=== PATIENT | male | born 1965 | race Caucasian/White ===

== ENCOUNTER 2017-01-16 10:43 | Day surgery (SDC) | payer BC ==
[2017-01-12 11:37] VITALS: BMI 21.7
[~2017-01-16 10:43] MED LIST: LIDOCAINE 1% 20 ML VIAL (10MG/ML) FOR IV START INTRADERMA PRN
[2017-01-16 12:18] VITALS: RESP 16; TEMP 98.2
[2017-01-16] MEDS: LACTATED RINGERS 1,000 ML IV SCH ×2 (12:18→12:21)
[2017-01-16] MEDS ORDERED: fentaNYL (PF) 50 MCG/ML 2 ML AMP ONE (12:23)
[2017-01-16] MEDS ORDERED: PROPOFOL 10 MG/ML 20 ML VIAL IV ONE (12:23)
--- NOTE | 2017-01-16 13:00 | P.PCN ---
Date of Procedure: 01/16/17 Preoperative Diagnosis: Postoperative Diagnosis: Procedure(s) Performed: Procedure: Total colonoscopy. Preoperative diagnosis: Screening for neoplasia. Postoperative diagnosis: Diverticulosis with no evidence of acute diverticulitis or strictures. No polyps or cancer. Preparation: HalfLytely prep. Sedation: Was provided by anesthesia. Brief clinical history: The patient is a 51-year-old male who is referred for this evaluation for screening for neoplasia age being his risk factor. He has no abdominal complaints of bleeding or anemia. He is adopted and he does not know of any family history of colon cancer. This would be his first colonoscopy. Procedure: With the patient on his left lateral decubitus position and after informed consent and adequate sedation, the perianal area was inspected and it did not show any fissures or distress. There were no masses felt on digital rectal examination. The Olympus CFQ 160L video colonoscope was then inserted in the rectum in the usual fashion and advanced to the cecum. There were occasional diverticular orifices seen scattered in the sigmoid and a rare orifice around the hepatic flexure with no evidence of acute diverticulitis or strictures. No polyps or tumors were seen. I retroflexed the endoscope in the rectum before the endoscope was withdrawn. The patient tolerated the procedure well. Plan: The patient was reassured. Discussed dietary measures. In the absence of finding of polyps or known family history of colon cancer, I suggested repeat exam in 10 years for screening for neoplasia. He will follow up with you as planned. Implants: Indications for Procedure: Operative Findings: Description of Procedure:
[2017-01-16 13:13] VITALS: BP 100/68; PULSE 62
== END 2017-01-16 13:35 | disposition home or self-care (01) ==
LOC: ORWHC2ENDO 10:43
DX: Z12.11 Encounter for screening for malignant neoplasm of colon (principal); K57.30 Diverticulosis of large intestine without perforation or abscess without bleeding; I10 Essential (primary) hypertension; J45.909 Unspecified asthma, uncomplicated; Z79.891 Long term (current) use of opiate analgesic; Z79.899 Other long term (current) drug therapy
CPT/HCPCS: J3010; J2704; G0121

== ENCOUNTER → 2017-02-03 | Outpatient (CLI) | payer BC ==
--- NOTE | 2017-02-03 18:16 | XR ---
EXAMINATION TYPE: XR KUB DATE OF EXAM: 02/03/2017 COMPARISON: 03/25/2016 HISTORY: Left renal stone TECHNIQUE: 2 views FINDINGS: There is no sign of intestinal obstruction or pneumoperitoneum. Fecal pattern is normal. Th ere is no sign of a mass. There are no pathologic calcifications over the kidneys. Lung bases are jamar ar. IMPRESSION: Nonacute abdomen. No change. No evidence of a renal calculus.
== END ==
LOC: RADXRMAIN 17:48
PROVIDERS: ATTEND Urology
DX: N23 Unspecified renal colic (principal)
CPT/HCPCS: 74000

== ENCOUNTER → 2017-02-06 | Outpatient (CLI) | payer BC ==
--- NOTE | 2017-02-06 16:07 | CT ---
EXAMINATION TYPE: CT abdomen pelvis wo con DATE OF EXAM: 02/06/2017 and 10/09/2014. COMPARISON: Abdominal KUB radiograph dated 817 HISTORY: Left side abdominal pain. Hx of kidney stones. CT DLP: 771 mGycm Automated exposure control for dose reduction was used. TECHNIQUE: Helical acquisition of images was performed from the lung bases through the pelvis. FINDINGS: Evaluation of the hollow and solid viscera is limited due to lack of intravenous contrast. LUNG BASES: Single pulmonary cyst is seen within the right lower lobe. No other significant abnormali ty is appreciated. LIVER/GB: No significant abnormality is appreciated. PANCREAS: No significant abnormality is seen. SPLEEN: No significant abnormality is seen. ADRENALS: No significant abnormality is seen. KIDNEYS: Two nonobstructing left renal calculi are seen measuring 4 mm in the lower pole and 2 mm in the midpole. A single nonobstructing right lower pole renal calculus is present measuring 5 mm. No ca lculi are present within the urinary bladder or visualized urethra. FREE AIR: No free air is visualized RETROPERITONEAL ADENOPATHY: None visualized REPRODUCTIVE ORGANS: Prostate gland is heterogenous containing central clinical indications. URINARY BLADDER: No significant abnormality is seen. PELVIC ADENOPATHY: None visualized. OSSEOUS STRUCTURES: No significant abnormality is seen. BOWEL: No significant abnormality is seen. Again the sigmoid colon is redundant. No evidence of denise l dilation. IMPRESSION: STABLE NONOBSTRUCTING LEFT-SIDED RENAL CALCULI (4 MM AND 2 MM) DATING BACK TO 10/06/2014 WITH A SINGLE NEW RIGHT NONOBSTRUCTING RENAL CALCULUS (5 MM).
== END | disposition home or self-care (01) ==
LOC: RADCTMAIN 15:37
PROVIDERS: ATTEND Urology
DX: N20.0 Calculus of kidney (principal)
CPT/HCPCS: 74176

== ENCOUNTER → 2017-08-29 | Outpatient (CLI) | payer BC ==
--- NOTE | 2017-08-29 21:44 | MR ---
EXAMINATION TYPE: MR lumbar spine wo/w con DATE OF EXAM: 08/29/2017 COMPARISON: NONE HISTORY: Low Back Pain x6 Months, Previous surgery 2014, Gadavist 7.5 CONTRAST: 7.5 mL intravenous Gadavist. TECHNIQUE: Multiplanar, multisequence images of the lumbar spine were acquired. FINDINGS: Cord terminates at the L1 level. L5-S1: There is disc desiccation L5-S1. Broad-based disc bulge has mild anterior thecal sac contact. Mild central focal bulge is present. No AP spinal canal stenosis present. Mild facet hypertrophy is p resent. Neural foramen are patent. L4-L5: Minimal disc bulge has anterior thecal sac contact with anterior thecal sac flattening. No AP spinal canal or neural foraminal stenosis is present. There is been a right hemilaminectomy. No sten osis is evident. L3-L4: Broad-based disc bulge is present. Anterior thecal sac flattening is present. No spinal canal stenosis or neural foraminal stenosis present. L2-L3: Minimal disc bulge has anterior thecal sac contact without stenosis. Neural foramen are paten t. There is an L2 vertebral body hemangioma. L1-L2: No significant disc bulge or disc herniation. No spinal canal stenosis. No foraminal stenosi s. . T12-L1: No significant disc bulge or disc herniation. No spinal canal stenosis. No foraminal stenos is. Suspicious enhancement is not evident. Postsurgical enhancement is identified at L4. IMPRESSION: 1. Disc bulge and central protrusion L5-S1 with anterior thecal sac contact. 2. Minimal disc bulge with anterior thecal sac contact L3-4 L4-5.
== END | disposition home or self-care (01) ==
LOC: RADMRIMAIN 16:14
PROVIDERS: ATTEND Physical Medicine & Rehabilitation
DX: M51.27 Other intervertebral disc displacement, lumbosacral region (principal)
CPT/HCPCS: 72158; A9581

== ENCOUNTER → 2020-04-17 | Outpatient (CLI) | payer BC ==
--- NOTE | 2020-04-17 15:24 | CT ---
EXAMINATION TYPE: CT abdomen pelvis wo con DATE OF EXAM: 04/17/2020 COMPARISON: CT abdomen pelvis 02/06/2017 HISTORY: Left sided flank pain and swelling with hematuria. History of stones. CT DLP: 483.1 mGycm Automated exposure control for dose reduction was used. TECHNIQUE: Helical acquisition of images was performed from the lung bases through the pelvis. CONTRAST: Performed without Oral Contrast and without intravenous contrast. FINDINGS: LUNG BASES: Normal. LIVER: Normal attenuation and size. BILIARY SYSTEM: No intrahepatic or extrahepatic biliary ductal dilatation. PANCREAS: No peripancreatic stranding or fluid collection. SPLEEN: Not enlarged. ADRENALS: Normal. KIDNEYS: Unchanged 3 mm nonobstructing calculus of the left renal lower pole and 2 mm calculus of the interpolar left kidney. Right-sided interpolar calculus measures up to 12 x 7 mm, with mild fullness of the renal pelvis and peripelvic and proximal periureteral inflammatory stranding. The previously demonstrated 5 mm focus of the right renal lower pole is not seen and may have passed or represent th e now demonstrated interpolar right renal stone. No ureteral or bladder calculi. BOWEL: No obstruction or thickening. Normal appendix. PERITONEUM: No pneumoperitoneum. No free fluid. LYMPH NODES: No lymphadenopathy. PELVIS: Underdistended urinary bladder is otherwise normal. Coarse prostatic calcification. VASCULATURE: No abdominal aortic aneurysm. MUSCULOSKELETAL: No acute osseous abnormality. Multiple unchanged benign bone findings such as encho ndroma, benign bone islands, and hemangiomas. IMPRESSION: 1. 12 x 7 mm right interpolar calculus, with mild fullness and haziness of the right renal pelvis. N o overt hydronephrosis. 2. Nonobstructing left renal calculi unchanged versus 2017 comparison.
== END | disposition home or self-care (01) ==
LOC: RADCTMAIN 11:58
PROVIDERS: ATTEND Urology
DX: R31.0 Gross hematuria (principal)
CPT/HCPCS: 74176

== ENCOUNTER → 2020-06-04 | Outpatient (CLI) | payer BC ==
[2020-06-04 09:19] LABS: Basophils # (A) 0.1 k/uL (0-0.2); Basophils % (A) 1 %; Eosinophils # (A) 0.2 k/uL (0-0.7); Eosinophils % (A) 3 %; HCT 52.3 % (39.0-53.0); HGB 17.8 gm/dL (13.0-17.5); Lymphocytes # (A) 1.4 k/uL (1.0-4.8); Lymphocytes % (A) 20 %; MCH 32.3 pg (25.0-35.0); MCV 95.1 fL (80.0-100.0); Mean Platelet Volume 8.1; Monocytes # (A) 0.7 k/uL (0-1.0); Monocytes % (A) 9 %; Neutrophils # (A) 4.5 k/uL (1.3-7.7); Neutrophils % (A) 64 %; Platelet Count 235 k/uL (150-450); RDW 12.7 % (11.5-15.5)
[2020-06-04 09:36] LABS: African American GFR (CKD) >90 (>60 ml/min/1.73 sqM); Anion Gap 2 mmol/L; Blood Urea Nitrogen 18 mg/dL (9-20); Calcium 9.5 mg/dL (8.4-10.2); Carbon Dioxide 35 mmol/L (22-30); Chloride 99 mmol/L (98-107); Glucose 96 mg/dL (74-99); Non-African American GFR(CKD) >90 (>60 ml/min/1.73 sqM); Potassium 4.6 mmol/L (3.5-5.1); Sodium 136 mmol/L (137-145)
== END | disposition home or self-care (01) ==
LOC: LABPAT 08:04
PROVIDERS: ATTEND Urology
DX: Z01.818 Encounter for other preprocedural examination (principal); N20.0 Calculus of kidney
CPT/HCPCS: 36415; 80048; 85025; 93005

== ENCOUNTER 2020-06-11 06:03 | Day surgery (SDC) | payer BC ==
--- NOTE | 2020-06-08 07:42 | P.GSHP ---
History of Present Illness H&P Date: 06/08/20 Chief Complaint: Left flank pain The patient is a 54-year-old white male with a history of recurrent urolithiasis. He has recently experienced flank pain. His pain is predominantly left-sided. A computed tomography scan shows 2 left renal calculi measuring 2-3 mm in size, nonobstructing. The computed tomography scan also shows a 7 x 12 mm right renal pelvic calculus with mild renal pelvic fullness. Alternative treatment options were reviewed in detail. These include observation, ESWL, and ureteroscopy with laser lithotripsy. He has elected to undergo ureteroscopic removal of the right renal calculus. - Constitutional Constitutional: Denies chills, Denies fever - Gastrointestinal Gastrointestinal: Denies nausea, Denies vomiting - Genitourinary (Male) Genitourinary: Reports flank pain, Reports hematuria, Reports kidney stones Past Medical History Past Medical History: Asthma, Hypertension Additional Past Medical History / Comment(s): migraines, childhood asthma, hx kidney stones History of Any Multi-Drug Resistant Organisms: None Reported Past Surgical History: Back Surgery, Orthopedic Surgery Additional Past Surgical History / Comment(s): left knee arthroscopy, rt shoulder surgery Past Anesthesia/Blood Transfusion Reactions: No Reported Reaction Additional Past Anesthesia/Blood Transfusion Reaction / Comment(s): adopted-no family hx Past Psychological History: Anxiety, Depression Past Alcohol Use History: None Reported Additional Past Alcohol Use History / Comment(s): quit smoking 20 yrs ago, smoked for about 10-15 yrs, < 1 PPD Past Drug Use History: None Reported - Past Family History Mother Family Medical History: Unable to Obtain Additional Family Medical History / Comment(s): adopted-no family hx Medications and Allergies Home Medications Medication Instructions Recorded Confirmed Type ALPRAZolam [Xanax] 1 mg PO HS PRN 01/12/17 01/16/17 History DULoxetine HCL [Cymbalta] 60 mg PO DAILY 01/12/17 01/16/17 History Hydrocodone/Acetaminophen [[place] 1 tab PO TID PRN 01/12/17 01/16/17 History 10-325] Morphine Sulfate ER [Ms Contin 15 mg PO Q12HR 01/12/17 01/16/17 History 15Mg] Zolpidem [Ambien] 10 mg PO HS PRN 01/12/17 01/16/17 History Allergies Allergy/AdvReac Type Severity Reaction Status Date / Time No Known Allergies Allergy Verified 01/16/17 12:09 Surgical - Exam - General well developed, well nourished, no distress - Neck no masses, trachea midline - Respiratory normal respiratory effort, clear to auscultation - Cardiovascular Rhythm: regular Abnormal Heart Sounds: no systolic murmur, no diastolic murmur, no rub, no S3 Gallop, no S4 Gallop, no click, no other - Abdomen Abdomen: soft, non tender, no guarding, no rigid, no rebound - Genitourinary testicles non-tender - Rectum Rectum: normal sphincter tone, no masses - Psychiatric oriented to time, oriented to person, oriented to place, speech is normal, memory intact Results - Imaging CT scan - abdomen: report reviewed, image reviewed Assessment and Plan (1) Calculus of kidney Status: Acute Code(s): N20.0 - CALCULUS OF KIDNEY SNOMED Code(s): 02848645 Plan: Cystoscopy, right ureteroscopy with Holmium laser lithotripsy and possible stone basketing, right ureteral stent insertion. The procedure has been reviewed in detail with the patient. He is aware of potential risks, which include anesthesia, bleeding, infection, and ureteral injury. He also understands that removal of the right renal calculus is not expected to improve his left flank pain.
[2020-06-09 08:46] VITALS: BMI 25.7
[~2020-06-11 06:03] MED LIST changes: +DEXAMETHASONE SOD PHOSPHATE 4 MG/ML 1 ML VIAL IV ONE; +LIDOCAINE 1% (10MG/ML) FOR IV START INTRADERMA PRN; -LIDOCAINE 1% 20 ML VIAL (10MG/ML) FOR IV START INTRADERMA PRN; +MIDAZOLAM 2 MG/2 ML VIAL IV PRN; +ONDANSETRON 4 MG/2 ML VIAL IVP ONE
[2020-06-11] MEDS: LACTATED RINGERS 1,000 ML IV SCH ×3 (06:45→10:58)
--- NOTE | 2020-06-11 07:20 | XR ---
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 Fecal debris is: Psoas margins are normal. No organomegaly is present. There is a 1.4 cm calcification over the right kidney. This is ill-defined margins. IMPRESSION: 1. 1.4 cm right renal stone
[2020-06-11] MEDS ORDERED: PROPOFOL 10 MG/ML 20 ML VIAL IV ONE (07:37)
[2020-06-11] MEDS ORDERED: LIDOCAINE 1% INJ 10MG/ML (20 ML MDV) ONE (07:37)
[2020-06-11] MEDS ORDERED: ePHEDrine SULFATE/0.9% NACL/PF 50 MG/5 ML SYRINGE IV ONE (07:37)
[2020-06-11] MEDS ORDERED: MIDAZOLAM 2 MG/2 ML VIAL ONE (07:37)
[2020-06-11] MEDS ORDERED: fentaNYL (PF) 50 MCG/ML 2 ML AMP ONE (07:37)
[2020-06-11] MEDS ORDERED: SUCCINYLCHOLINE CHLORIDE 100 MG/5 ML SYR IV ONE (07:37)
[2020-06-11 09:27] VITALS: TEMP 97.6
[2020-06-11 09:36] VITALS: RESP 16
--- NOTE | 2020-06-11 09:49 | P.OP ---
Date of Procedure: 06/11/20 Preoperative Diagnosis: Right renal calculus Postoperative Diagnosis: Same Procedure(s) Performed: Cystoscopy, right ureteroscopy with Holmium laser lithotripsy, right ureteral stent insertion Anesthesia: RADHAA Surgeon: Jose Sanchez Estimated Blood Loss (ml): 0 IV fluids (ml): 600 Pathology: none sent Condition: stable Disposition: PACU Indications for Procedure: The patient is a 54-year-old white male with a history of recurrent urolithiasis. He has recently experienced flank pain. His pain is predominantly left-sided. A computed tomography scan shows 2 left renal calculi measuring 2-3 mm in size, nonobstructing. The computed tomography scan also shows a 7 x 12 mm right renal pelvic calculus with mild renal pelvic fullness. Alternative treatment options were reviewed in detail. These include observation, ESWL, and ureteroscopy with laser lithotripsy. He has elected to undergo ureteroscopic removal of the right renal calculus. Operative Findings: Excellent fragmentation of right renal pelvic calculus. Description of Procedure: The patient was taken to the operating room and placed in the dorsolithotomy position, with legs supported in Kal stirrups. The external genitalia was prepped and draped sterilely. The 30 lens was used to introduce the 21-[place]vian Maher cystoscopic sheath through the urethra and into the bladder under direct vision. The prostatic urethra showed evidence of mild lateral lobe enlargement. The bladder was examined in its entirety. Both ureteral orifices were normal anatomic location and configuration, and clear urine effluxed from both. No tumors or foreign bodies were seen. A 0.038 inch Glidewire was passed through the cystoscope. The right ureteral orifice was cannulated, and the Glidewire was advanced up to the renal pelvis. The cystoscope was removed, and an 11/13- [place]vian ureteral access catheter was passed over the wire, up to the proximal ureter. The Maher ImmuRxra flexible ureteroscope was then passed through the ureteral access catheter sheath, up to the stone. The 200 micron Holmium laser probe was passed through the ureteroscope, and lithotripsy was performed. The calculus had a stellate appearance and fragmented readily. The majority of the procedure was performed utilizing a dusting technique, and popcorning was performed at the conclusion of the procedure to ensure that there were no residual calculus fragments exceeding the size of the laser fiber tip. The Glidewire was passed through the ureteral access catheter sheath, which was removed. The Glidewire was backloaded into the cystoscope, which was passed into the bladder. A 26 cm, 4.8-Latvian double-J ureteral stent was placed over the wire. Proper stent positioning was verified fluoroscopically and endoscopically. The bladder was emptied and the cystoscope removed. The patient tolerated the procedure well and was taken to the recovery room in stable condition. MUSIC ROCKS Report: Procedure Acuity: Elective Stone Size and Location: 7 x 12 mm, right renal pelvis Ureteral Dilation: No Ureteral Access Sheath Used: Yes Stone Sent for Analysis: No All Stones/Fragments Were Removed with a Basket: No Complications: No Preoperative Antibiotics Given: Yes Stent Placed: Yes If Stent Placed, Was String Left Attached: No If Stent Placed, When is it to be Removed: 1 week Discharge Medications: Tamsulosin
--- NOTE | 2020-06-11 09:50 | FL ---
Fluoroscopy INDICATION: Intraoperative guidance FINDINGS: Fluoroscopy time: 7 seconds. Images obtained: 1. IMPRESSIONS: 1. Documentation of fluoroscopy.
[2020-06-11] MEDS: HYDROmorphone 0.5 MG/0.5 ML SYRINGE IVP PRN ×6 (09:56→10:33)
[2020-06-11] MEDS ORDERED: HYDROcodone/APAP 10-325MG 1 EACH TAB ONE (11:14)
[2020-06-11] MEDS ORDERED: HYDROcodone/APAP 10-325MG 1 EACH TAB PO ONE (11:16)
[2020-06-11 11:30] VITALS: PULSE 82
[2020-06-11 11:40] VITALS: BP 148/75
== END 2020-06-11 11:52 | disposition home or self-care (01) ==
LOC: OR 06:03
PROVIDERS: ATTEND Urology
DX: N20.0 Calculus of kidney (principal); I10 Essential (primary) hypertension; J45.909 Unspecified asthma, uncomplicated; G43.909 Migraine, unspecified, not intractable, without status migrainosus; F41.9 Anxiety disorder, unspecified; F32.9 Major depressive disorder, single episode, unspecified; Z87.442 Personal history of urinary calculi; Z79.891 Long term (current) use of opiate analgesic; Z79.899 Other long term (current) drug therapy; Z98.890 Other specified postprocedural states
CPT/HCPCS: 74018; 52356; C2625; C1758 ×3; C1769 ×2; J2250; J1100; J0690; J2405; J2001; J3010; J0330; J2704; J1170

== ENCOUNTER → 2020-08-04 | Outpatient (CLI) | payer BC ==
--- NOTE | 2020-08-04 08:58 | US ---
EXAMINATION TYPE: US kidneys/renal and bladder DATE OF EXAM: 08/04/2020 COMPARISON: CT 2019, US 2011 CLINICAL HISTORY: N20.0 Calculus of kidney. History of kidney stones, right lithotripsy in June 03 020 EXAM MEASUREMENTS: Right Kidney: 12.8 x 6.5 x 5.3 cm Left Kidney: 11.7 x 5.6 x 6.0 cm Right Kidney: no hydronephrosis or masses seen Left Kidney: 0.6cm echogenic shadowing focus mid pole, 0.5cm echogenic shadowing focus inferior pole Bladder: wnl Bilateral Jets seen: no There is no evidence for hydronephrosis at this point in time. No masses are identified. The urina ry bladder is anechoic. Bilateral ureteral jets are seen. IMPRESSION: Nonobstructing nephrolithiasis identified.
--- NOTE | 2020-08-04 09:41 | XR ---
EXAMINATION TYPE: XR KUB DATE OF EXAM: 08/04/2020 HISTORY: Pain Comparison: None.Single KUB is submitted for interpretation. Findings: Right renal calculi: Renal calculus upper pole right kidney measures 1.3 cm. Overlying bowel content limits evaluation. Right ureteral calculi: None Visualized. Left renal calculi: None Visualized. Left ureteral calculi: None Visualized. Pelvic calcifications: Stable right hemipelvic phlebolith. Bowel gas pattern is unremarkable. No free air. No mass effects. IMPRESSION: 1. Renal calculus upper pole right kidney measures 1.3 cm. Overlying bowel content limits evaluation.
== END | disposition home or self-care (01) ==
LOC: RADUSWWP 07:58
PROVIDERS: ATTEND Urology
DX: N20.0 Calculus of kidney (principal)
CPT/HCPCS: 74018; 76770

== ENCOUNTER → 2023-01-09 | Outpatient (CLI) | payer BC ==
--- NOTE | 2023-01-15 10:19 | MR ---
EXAMINATION TYPE: MR shoulder RT wo con DATE OF EXAM: 01/09/2023 COMPARISON: None HISTORY: Right shoulder pain, injury 2 mos ago. Hx surgery. TECHNIQUE: Multiplanar, multisequence imaging of the right shoulder is performed without contrast. FINDINGS: There are a few small subchondral cysts in the lateral humeral head. There is a rim rent tear of the supraspinatus tendon. There is fluid within the infraspinatus tendon at the musculotendinous junction with the possibility of intrasubstance tears. There is no retraction of either the supraspinatus or infraspinatus tendons There is mild osteoarthritic changes in the acromioclavicular joint and there is a lateral downslopin g acromion resulting in mild shoulder impingement. Glenohumeral joint is grossly intact without joint effusion or abnormality of the cartilaginous labru m. There there is no subacromial or subdeltoid bursitis. The biceps tendon is normal in signal intensity and location The subscapularis tendon is normal. IMPRESSION: 1. Rim rent tear of the supraspinatus tendon without retraction of the musculotendinous junction. 2. Focal edema possible intrasubstance tear of the infraspinatus at the musculotendinous junction wit hout retraction. 3. Intact subscapularis tendon. 4. Mild shoulder impingement and mild osteophytic change of the AC joint. 5. No abnormality of the glenohumeral joint or biceps tendon.
== END | disposition home or self-care (01) ==
LOC: RADMRIMAIN 06:09
PROVIDERS: ATTEND Orthopaedic Surgery
DX: M75.121 Complete rotator cuff tear or rupture of right shoulder, not specified as traumatic (principal); M25.811 Other specified joint disorders, right shoulder; R60.0 Localized edema

== ENCOUNTER → 2023-06-09 | Outpatient (CLI) | payer BC ==
--- NOTE | 2023-06-10 11:33 | MR ---
EXAMINATION TYPE: MR cervical spine wo con DATE OF EXAM: 06/09/2023 6:34 AM CLINICAL INDICATION:Male, 57 years old with history of M54.12 CERVICAL RADICULOPATHY; PHH, Rt arm nayely n COMPARISON: 06/06/2023 plain film, MRI 03/13/2019. TECHNIQUE: Multi planar, multi sequence imaging was performed utilizing: T1-weighted, T2-weighted, an d turbo inversion recovery imaging of the cervical spine. IV Contrast: cc (none if empty) FINDINGS: Alignment: The cervical vertebral bodies have preserved heights. Alignment is within normal limits gi steven patient positioning. Bones: Scattered Modic endplate changes with osteophytes and disc space narrowing. Multilevel degener ative disc disease is noted and most pronounced at the C5-C7 vertebral levels. Cord: The spinal cord is unremarkable with regards to their signal intensity and morphology. Discs: Multilevel disc desiccation is present. C2-C3: No significant disc pathology. The spinal canal is patent. Bilateral facet and uncovertebral joint arthropathy are present with mild bilateral neural foraminal stenosis. C3-C4: No significant disc pathology. The spinal canal is patent. Bilateral facet and uncovertebral joint arthropathy are present with to moderate right and mild left neural foraminal stenosis. C4-C5: No significant disc pathology. The spinal canal is patent. Bilateral facet and uncovertebral joint arthropathy are present with moderate to severe right and moderate left neural foraminal stenos is. C5-C6: A disc osteophyte complex is present with mild spinal canal stenosis. Bilateral facet and unc overtebral joint arthropathy are present with moderate to severe right and moderate left neural roland inal stenosis. C6-C7: No significant disc pathology. The spinal canal is patent. Bilateral facet and uncovertebral joint arthropathy are present with mild bilateral neural foraminal stenosis. C7-T1: No significant disc pathology. The spinal canal is patent. No neural foraminal stenosis. Other: None. IMPRESSION: 1. No evidence for disc herniation or significant spinal canal stenosis. 2. Mild to moderate disc degeneration with associated osteoarthritic changes. No foraminal stenosis w orse at right C3-C4 and C4-C5 with moderate, C5-C6 and C6-C7 with moderate to severe neural foraminal stenosis. Findings overall are undetermined from prior in 2018.
== END | disposition home or self-care (01) ==
LOC: RADMRIMAIN 06:02
PROVIDERS: ATTEND Orthopaedic Surgery
DX: M79.601 Pain in right arm (principal); M54.12 Radiculopathy, cervical region
CPT/HCPCS: 72141

== ENCOUNTER 2023-11-07 22:45 | Emergency (ER) | payer BC ==
--- NOTE | 2023-11-07 23:39 | XR ---
EXAM: XR Left Ankle Complete, 3 or More Views CLINICAL HISTORY: ITS.REASON XR Reason: twisted ankle TECHNIQUE: Frontal, lateral and oblique views of the left ankle. COMPARISON: No relevant prior studies available. FINDINGS: Bones/joints: No acute fracture. No dislocation. He also measures 3 mm. Soft tissues: Lateral soft tissue swelling. IMPRESSION: Lateral soft tissue swelling.
--- NOTE | 2023-11-07 23:48 | ED ---
Lower Extremity Injury HPI - General Chief Complaint: Extremity Injury, Lower Stated Complaint: fall-left foot pain Time Seen by Provider: 11/07/23 22:50 Source: patient Mode of arrival: wheelchair Limitations: no limitations - History of Present Illness Initial Comments: 58-year-old male presenting with chief complaint of left ankle pain. The patient missed the last step when coming out of his camper this evening. He twisted his ankle and now there is significant tenderness and swelling. Pain is worse with weightbearing. No discoloration. Patient is still able to move his toes. - Related Data Home Medications Medication Instructions Recorded Confirmed DULoxetine HCL [Cymbalta] 60 mg PO DAILY 01/12/17 06/11/20 Hydrocodone/Acetaminophen [[place] 1 tab PO TID PRN 01/12/17 06/11/20 10-325] Morphine Sulfate ER [Ms Contin 15 mg PO Q12HR 01/12/17 06/11/20 15Mg] Testosterone (Unkn. Dose) 1 dose INJ Q7D 06/09/20 06/11/20 Previous Rx's Medication Instructions Recorded Tamsulosin [Flomax] 0.4 mg PO DAILY #14 cap 06/11/20 Allergies Allergy/AdvReac Type Severity Reaction Status Date / Time No Known Allergies Allergy Verified 11/07/23 22:49 Review of Systems ROS Statement: Those systems with pertinent positive or pertinent negative responses have been documented in the HPI. ROS Other: All systems not noted in ROS Statement are negative. Past Medical History Past Medical History: Asthma, Hypertension Additional Past Medical History / Comment(s): migraines, childhood asthma, hx kidney stones History of Any Multi-Drug Resistant Organisms: None Reported Past Surgical History: Back Surgery, Orthopedic Surgery Additional Past Surgical History / Comment(s): left knee arthroscopy, rt shoulder surgery Past Anesthesia/Blood Transfusion Reactions: No Reported Reaction Additional Past Anesthesia/Blood Transfusion Reaction / Comment(s): adopted-no family hx Past Psychological History: Anxiety, Depression Past Alcohol Use History: None Reported Past Drug Use History: None Reported - Past Family History Mother Family Medical History: Unable to Obtain Additional Family Medical History / Comment(s): adopted-no family hx General Exam Limitations: no limitations General appearance: alert, in no apparent distress Head exam: Present: atraumatic, normocephalic Eye exam: Present: normal appearance, EOMI Neck exam: Present: normal inspection. Absent: meningismus Respiratory exam: Absent: respiratory distress Cardiovascular Exam: Present: regular rate Left Ankle exam: Present: tenderness, swelling. Absent: full ROM Neurovascular tendon exam: Present: no vascular compromise Neurological exam: Present: alert, oriented X3 Psychiatric exam: Present: normal affect, normal mood Skin exam: Present: warm, dry Course Vital Signs 11/07/23 11/08/23 22:47 00:22 Temperature 98.6 F 98.5 F Pulse Rate 85 89 Respiratory 18 16 Rate Blood Pressure 154/99 150/86 O2 Sat by Pulse 96 97 Oximetry Medical Decision Making - Medical Decision Making Was pt. sent in by a medical professional or institution (, PA, CLARITY DEVELOPER, urgent care, hospital, or fci...) When possible be specific @ -No Did you speak to anyone other than the patient for history (EMS, parent, family, police, friend...)? What history was obtained from this source @ -No Did you review nursing and triage notes (agree or disagree)? Why? @ -I reviewed and agree with nursing and triage notes Were old charts reviewed (outside hosp., previous admission, EMS record, old EKG, old radiological studies, urgent care reports/EKG's, fci records)? Report findings @ -No old charts were reviewed Differential Diagnosis (chest pain, altered mental status, abdominal pain women, abdominal pain men, vaginal bleeding, weakness, fever, dyspnea, syncope, headache, dizziness, GI bleed, back pain, seizure, CVA, palpatations, mental health, musculoskeletal)? @ -Differential Musculoskeletal Muscular strain, contusion, ligament sprain, fracture, arthritis, septic arthritis, bursitis, cellulitis, muscle spasm, nerve compression, DVT, arterial occlusion, herpes zoster, electrolyte abnormality, tumor.... This is not meant to be in all inclusive list EKG interpreted by me (3pts min.). @ -As above X-rays interpreted by me (1pt min.). @ -X-ray shows lateral soft tissue swelling. No acute fracture or dislocation CT interpreted by me (1pt min.). @ -None done U/S interpreted by me (1pt. min.). @ -None done What testing was considered but not performed or refused? (CT, X-rays, U/S, labs)? Why? @ -None What meds were considered but not given or refused? Why? @ -None Did you discuss the management of the patient with other professionals (professionals i.e. DrHumberto, PA, CLARITY DEVELOPER, lab, RT, psych nurse, social worker health services, pipe supervisor, teacher, eeo officer, nurse outreach case manager)? Give summary @ -No Was smoking cessation discussed for >3mins.? @ -No Was critical care preformed (if so, how long)? @ -No Were there social determinants of health that impacted care today? How? (Homelessness, low income, unemployed, alcoholism, drug addiction, transportation, low edu. Level, literacy, decrease access to med. care, fdc, rehab)? @ -No Was there de-escalation of care discussed even if they declined (Discuss DNR or withdrawal of care, Hospice)? DNR status @ -No What co-morbidities impacted this encounter? (DM, HTN, Smoking, COPD, CAD, Cancer, CVA, ARF, Chemo, Hep., AIDS, mental health diagnosis, sleep apnea, morbid obesity)? @ -None Was patient admitted / discharged? Hospital course, mention meds given and route, prescriptions, significant lab abnormalities, going to OR and other pertinent info. @ -58-year-old male presenting with chief complaint of left ankle injury. He is neurovascularly intact. X-rays negative for fracture or dislocation. He is educated on ankle sprain and supportive management at home. Patient has a walker he can utilize as needed. Discharged home. Follow-up with PCP. Report back to ER with any new or worsening symptoms. Discussed return parameters and answered all questions. Patient conveyed verbal understanding and agreed to the plan. I discussed this case in detail with my attending Dr. Tobar Undiagnosed new problem with uncertain prognosis? @ -No Drug Therapy requiring intensive monitoring for toxicity (Heparin, Nitro, Insulin, Cardizem)? @ -No Were any procedures done? @ -No Diagnosis/symptom? @ -Ankle sprain Acute, or Chronic, or Acute on Chronic? @ -Acute Uncomplicated (without systemic symptoms) or Complicated (systemic symptoms)? @ -Uncomplicated Side effects of treatment? @ -No Exacerbation, Progression, or Severe Exacerbation? @ -No Poses a threat to life or bodily function? How? (Chest pain, [place], MA, pneumonia, PE, COPD, DKA, ARF, appy, cholecystitis, CVA, Diverticulitis, Homicidal, Suicidal, threat to staff... and all critical care pts) @ -No Disposition Clinical Impression: Ankle sprain Disposition: HOME SELF-CARE Condition: Good Instructions (If sedation given, give patient instructions): Ankle Sprain (ED) Additional Instructions: Follow-up with PCP. Report back to ER with any new or worsening symptoms. Rest, ice, compress, elevate the leg. Alternate Motrin and Tylenol as needed for pain control. Is patient prescribed a controlled substance at d/c from ED?: No Referrals: Florecita Hemphill DO [Primary Care Provider] - 1-2 days Time of Disposition: 23:48
[2023-11-08 01:00] VITALS: BP 150/86; PULSE 89; RESP 16; TEMP 98.5
== END 2023-11-08 00:24 | disposition home or self-care (01) ==
LOC: EC 22:45
DX: S93.402A Sprain of unspecified ligament of left ankle, initial encounter (principal); W10.9XXA Fall (on) (from) unspecified stairs and steps, initial encounter; X50.1XXA Overexertion from prolonged static or awkward postures, initial encounter
CPT/HCPCS: 99283